=== PATIENT | female | born 1945 | race African-American/Black ===

== ENCOUNTER → 2016-11-03 | Outpatient (CLI) | payer OTHER ==
[2015-05-04 15:33] VITALS: BP 132/41
[~2016-11-03] MED LIST: ASPI-630 PO; ATOR10TA60 PO; GLUC1TAB26 PO; NAPR375T5 PO; NIFE30TA17 PO; OXYC-323 PO; POTA10TA5 PO; TRIA1CAP PO; WARF4TAB68 PO
--- NOTE | 2016-11-03 15:08 | RAD ---
Indication chronic hip pain. AP and frog leg views of the left hip were obtained. There are some degenerative changes. This is manifested primarily as some joint space narrowing. No fracture or acute finding is seen. Calcifications are seen in the partially visualized pelvis which are compatible with calcified uterine fibroids. IMPRESSION: Degenerative change left hip
== END | disposition home or self-care (01) ==
LOC: RAD 13:50
PROVIDERS: ATTEND Internal Medicine
DX: M25.552 Pain in left hip (principal); D25.9 Leiomyoma of uterus, unspecified
CPT/HCPCS: 73502

== ENCOUNTER → 2020-03-02 | Outpatient (CLI) | payer MEDICARE, OTHER ==
[2015-05-04 15:33] VITALS: BP 132/41
[~2020-03-02] MED LIST changes: -NIFE30TA17 PO; +NIFE30TA95 PO; -OXYC-323 PO; +OXYC1TAB15 PO; +POTA10TA12 PO; -POTA10TA5 PO
--- NOTE | 2020-03-09 18:52 | KCIC ---
BILATERAL SCREENING MAMMOGRAM, 3-D History: Routine screening. Comparison: Bilateral mammogram November 08, 2018, [facility]. Technique: MLO and CC digital tomosynthesis (3D) images obtained. Radiologist reviewed these images on dedicated workstation. Findings: Breast Tissue Density D :The breasts are extremely dense, which lowers the sensitivity of mammography. There are several bilateral benign calcifications. There are probably early vascular calcifications in the lower outer left breast. There are no dominant masses, suspicious microcalcifications or architectural distortion. IMPRESSION: No mammographic evidence of malignancy. Recommend routine screening. BI-RADS category 2: Benign findings. The images were reviewed with computer-aided detection. Patient information is entered into reminder system with a target due date for the next screening mammogram. Mammography is the most sensitive method for finding small breast cancers, but it does not detect them all and is not a substitute for careful clinical examination. A negative mammogram does not negate a clinically suspicious finding and should not result in delay in biopsying a clinically suspicious abnormality. "Our facility is accredited by the [employer] Mammography Program." Electronically signed by: Nam Arroyo MD (03/09/2020 6:49 PM) [id number]
== END ==
LOC: KCIC MAMMO 09:56
PROVIDERS: ATTEND Internal Medicine
DX: Z12.31 Encounter for screening mammogram for malignant neoplasm of breast (principal)
CPT/HCPCS: 77063; 77067